=== PATIENT | male | born 1970 | race Caucasian/White ===

== ENCOUNTER 2023-09-23 08:26 | Emergency (ER) | payer BC, SELFPAY ==
[2023-09-23 08:29] VITALS: BP 168/96
[2023-09-23 09:11] VITALS: BMI 34.0
[2023-09-23 09:24] LABS: % Basophils 0.7 % (0-2); % Eosinophils 1.4 % (0-6); % Immature Granulocytes 0.4 % (0-0.5); % Lymphocytes 21.5 % (20.5-51.1); % Monocytes 8.8 % (1.7-9.3); % Neutrophils 67.2 % (42.2-75.2); Absolute Basophils 0.1 10^3/uL (0-0.2); Absolute Eosinophils 0.1 10^3/uL (0-0.7); Absolute Lymphocytes 1.8 10^3/uL (1.2-3.4); Absolute Monocytes 0.7 10^3/uL (0.1-0.6); Absolute Neutrophils 5.5 10^3/uL (1.4-6.5); Hematocrit 43.7 % (39.0-52.0); Hemoglobin 15.2 g/dL (13.0-18.0); Mean Corp Hgb Conc. 34.8 g/dL (33.0-37.0); Mean Corpuscular Hgb 30.7 pg (27.0-31.0); Mean Corpuscular Volume 88.3 fL (80.0-94.0); Mean Platelet Volume 10.1 fL (7.4-10.4); Nucleated Red Blood Cells % 0 % (-); Platelet Count 206 10^3/uL (130-400); Red Blood Cell Count 4.95 10^6/uL (4.70-6.10); Red Cell Dist. Width 12.5 % (11.5-14.5); White Blood Cell Count 8.1 10^3/uL (4.8-10.8)
[2023-09-23 09:39] LABS: ALT (SGPT) 30 U/L (0-50); AST (SGOT) 30 U/L (17-59); Albumin 4.4 g/dl (3.5-5.0); Alkaline Phosphatase 83 U/L (38-126); Blood Urea Nitrogen 18 mg/dl (9-20); Calcium 9.1 mg/dl (8.4-10.2); Carbon Dioxide 23 mmol/L (22-30); Chloride 107 mmol/L (98-107); Estimated Creatinine Clearance > 125 ml/min; Glucose 91 mg/dl (70-99); Lipase 62 U/L (23-300); Potassium 4.3 mmol/L (3.5-5.1); Sodium 137 mmol/L (135-145); Total Bilirubin 0.8 mg/dl (0.2-1.3); Total Protein 7.5 g/dl (6.3-8.2); eGFR > 60.00
--- NOTE | 2023-09-23 09:53 | ED.GENMED ---
History of Present Illness
General
Chief Complaint: Abdominal Symptoms
Source: patient, records and spouse
Exam Limitations: none
Time Seen by Provider: 09/23/23 08:54
Nursing documentation reviewed up to this point in time: agreed with
Travel History
Have you had any contact with someone who has COVID-19?: No
Do you have any symptoms of coronavirus? Fever > 100 degrees, chills, cough, shortness of breath, sore throat, loss of taste or smell, muscle aches, or headache?: No
History of Present Illness
History of Present Illness:
53-year-old male with a past medical history of hypertension, hyperlipidemia who presents to the emergency department for evaluation of hemoptysis. Patient reports that he has had multiple chronic health issues over the past few months and has been
back and forth between his primary doctor and multiple specialist. He says that he has been dealing with chronic congestion and headaches and has seen an ENT, neurologist and is in the midst of an outpatient workup for these things. His ENT thinks
he may have eustachian tube dysfunction patient has been taking Flonase nasal spray recently. He says that he has been dealing with chronic abdominal discomfort located in the right upper abdomen radiates towards the right flank. He says that he
has seen a GI doctor and recently had upper and lower endoscopy which were nondiagnostic. He is already status post both appendectomy and cholecystectomy. He does have a prior surgical history of gastric bypass as well. He presents to the
emergency today primarily to be evaluated for hemoptysis. He says that all of his other symptoms are chronic and unchanged but that this morning when he woke up he coughed up blood. He says that it was not vomit, was sputum mixed with bright red
blood. He denies any shortness of breath. He denies any recent fevers or chills. He has not had any recent nosebleeds. He is not on any blood thinners. Has not had any pain or swelling in his legs, no history of DVT/PE.
Past History
Past History
ED Past Medical History: HTN, Hypercholesterolemia and Other (Traumatic brain injury)
ED Past Surgical History: Appendectomy, Cholecystectomy and Orthopedic
Social History
Tobacco: Smoker
Alcohol: None
Drug: None
Personal:
Living: with family
Employment: Disabled
Family History
Family History: CAD
Review of Systems
Review of Systems
All Other Systems: ROS reviewed and negative except as documented in HPI and ROS
Constitutional: Denies fever or chills
EENT: Reports other (Chronic congestion); Denies sore throat
Respiratory: Reports cough and hemoptysis; Denies trouble breathing
Cardiac: Denies chest pain, diaphoresis or palpitations
ABD/GI: Reports abdominal pain (Chronic); Denies nausea or vomiting
: Denies flank pain
Musculoskeletal: Denies neck pain or back pain
Neurological: Reports headache (Chronic); Denies weakness or numbness
Phy Exam
Physical Exam
Physical Exam:
General: Awake, alert, oriented x3; no acute distress
Head: Normocephalic, atraumatic
Eyes: Conjunctiva normal, EOMI, sclera anicteric
Nose: No blood in nares
Throat: Airway intact, handling secretions, no tonsillar erythema or exudate, no bleeding into the posterior oropharynx
Neck: Trachea midline, supple without meningismus
Lungs: Clear to auscultation bilaterally, no wheezing, rales, rhonchi
Heart: Regular rate and rhythm, no murmurs, gallops, or rubs
Abd: Soft, non distended, nontender to deep palpation
Back: No CVA tenderness
Neuro: No gross deficits
Skin: no rash
Extremities: Warm well-perfused, no edema
Scores
Heart Failure Risk
Heart Failure Risk Score: Not Applicable
Heart Score for Chest Pain Patients
STEMI patient?: Not applicable
Withdrawal Assessment of Alcohol
Withdrawal Assessment Completed?: Not applicable
Course
Orders/Labs/Results
Orders:
Orders
09/23/23 09:13
Complete Blood Count/With Diff Urgent
Comprehensive Metabolic Panel Urgent
Lipase Urgent
09/23/23 09:53
CT Chest Pe Study Urgent
Comment:
Reason For Exam: hemoptysis, right flank pain
Abnormal Lab Results
09/23/23
09:13
Absolute Monos (auto) 0.7 H 10^3/uL
(0.1-0.6)
Creatinine 0.6 L mg/dL
(0.7-1.3)
09/23/23 09:13
09/23/23 09:13
Vital Signs
Initial and Last Documented VS:
Initial Vital Signs
Temp Pulse Resp BP
37.2 C 95 16 168/96
09/23/23 08:29 09/23/23 08:29 09/23/23 08:29 09/23/23 08:29
Last Documented Vital Signs
Temp Pulse Resp BP
37.2 C 95 16 168/96
09/23/23 08:29 09/23/23 08:29 09/23/23 08:29 09/23/23 08:29
MDM/Problems Addressed
Differential Diagnosis Includes:
PE, pneumonia, bronchitis, posterior epistaxis
MDM/Problems Addressed:
53-year-old male presents for evaluation of hemoptysis x 1 episode today. He has been dealing with multiple chronic issues and has seen multiple specialists for these�these issues are all stable and unchanged he says. Hypertensive but otherwise
normal vitals here. Physical exam as above. Plan to place an IV check labs including a CBC and a CMP. Will check CTA to rule out PE with his chronic right flank pain and now hemoptysis. Will monitor closely reassess after the above.
Labs reviewed: CBC and CMP unremarkable; CTA negative for PE does show mild bronchitis which could account for his hemoptysis. Will start on short burst of steroids. No clear indication for admission he has not had no recurrence of hemoptysis I
think he is stable for discharge to follow-up with his primary care physician and multiple specialists to continue outpatient workup of his chronic issues. Spoke about return precautions all questions answered.
Acute Exacerbation and/or Progression of Chronic Illness:
Acutely hypertensive
Acute Exacerbation and/or Progression of Chronic Illness: HTN
*Radiology
Radiology exam reviewed: radiology read reviewed
*Pulse Oximetry
Patient hypoxic: no
*Critical Care Note
Total Time (30-74mins, 75-104mins- exclusive of procedures): Not Applicable
Data Reviewed
Source: patient
ED Attending Note
-
Portions of this chart may have been created with voice recognition software.� Occasional wrong word or��sound alike� substitutions may have occurred due to the inherent limitations of voice recognition software.
Discharge Plan
Departure
Patient Disposition: Home (Routine Discharge)
Date of Disposition: 09/23/23
Time of Disposition: 11:34
Patient with high blood pressure during this ER visit?: Yes
Discharge Problem:
Bronchitis, Hemoptysis
Instructions: Acute Bronchitis, Adult (DC), Coughing up blood
Prescriptions:
New
prednisone 50 mg tablet
50 mg PO DAILY Qty: 5 0RF
No Action
omeprazole 20 MG capsule,delayed release(DR/EC)
20 mg PO BID
fexofenadine-pseudoephedrine [Pamela-D 24 Hour] 1 EACH tablet extended release 24 hr
1 ea PO HS
Referrals:
Nicolette Garza DO [Family Provider] - Follow up in 2-3 days
Activity Restrictions/Additional Instructions:
Thank you for visiting the Emergency Department at [facility].
1. Please schedule a follow up appointment as directed. Call first thing tomorrow morning to make an appointment.
2. If indicated, please take your medications as instructed and indicated on discharge paperwork.
3. If any of your symptoms do not improve, or persist, or become more severe within 6-12 hours, please return to the emergency department for further care.
4. Please return to the emergency department if you develop a headache, neck pain/stiffness, fever greater than 100.4F, chest pain, shortness of breath, persistent nausea, vomiting, slurred speech, difficulty walking, numbness/tingling, weakness,
signs of infection or any other symptoms that are worrisome to you.
Please call [phone] if you have any questions.
Interventions
Interventions:
*Risk Screen - Suicide Last Done: 09/23/23 09:11
*General Assessment Last Done: 09/23/23 09:11
*Neglect/Abuse Screening Last Done: 09/23/23 09:11
*ED COVID-19 Vaccine History Last Done: 09/23/23 08:29
KE-Kgumku-Hfrfidpmgv Assessment Last Done: 09/23/23 09:11
[2023-09-23] MEDS: DELTASONE 50 MG PO (11:55)
--- NOTE | 2023-09-23 12:31 | EDRN ---
12:04 pt discharged after he spoke > [address] Vizcarra regarding plan of care including follow up and lifestyle changes. CT report printout provided to pt.
== END 2023-09-23 12:04 | disposition home or self-care (01) ==
LOC: EMR 08:26
PROVIDERS: EMERGENCY PHYSICIAN Emergency Medicine; FAMILY PHYSICIAN Internal Medicine
DX: J40 Bronchitis, not specified as acute or chronic (principal); R04.2 Hemoptysis; I10 Essential (primary) hypertension; E78.00 Pure hypercholesterolemia, unspecified; F17.200 Nicotine dependence, unspecified, uncomplicated; Z82.49 Family history of ischemic heart disease and other diseases of the circulatory system; Z90.49 Acquired absence of other specified parts of digestive tract; Z98.84 Bariatric surgery status
CPT/HCPCS: 99284; 71275; 80053; 83690; 85025; Q9967

== ENCOUNTER 2023-12-19 10:20 | Emergency (ER) | payer BC, SELFPAY ==
[2023-12-19 10:26] VITALS: BP 165/87
[2023-12-19 11:31] VITALS: BMI 36.0
[2023-12-19 11:43] LABS: % Basophils 0.7 % (0-2); % Eosinophils 0.4 % (0-6); % Immature Granulocytes 0.3 % (0-0.5); % Lymphocytes 22.7 % (20.5-51.1); % Monocytes 8.3 % (1.7-9.3); % Neutrophils 67.6 % (42.2-75.2); Absolute Basophils 0.1 10^3/uL (0-0.2); Absolute Lymphocytes 1.7 10^3/uL (1.2-3.4); Absolute Monocytes 0.6 10^3/uL (0.1-0.6); Hemoglobin 15.3 g/dL (13.0-18.0); Mean Corp Hgb Conc. 33.3 g/dL (33.0-37.0); Mean Corpuscular Hgb 30.5 pg (27.0-31.0); Mean Corpuscular Volume 91.8 fL (80.0-94.0); Mean Platelet Volume 10.3 fL (7.4-10.4); Nucleated Red Blood Cells % 0 % (-); Platelet Count 239 10^3/uL (130-400); Red Blood Cell Count 5.01 10^6/uL (4.70-6.10); Red Cell Dist. Width 13.3 % (11.5-14.5); White Blood Cell Count 7.5 10^3/uL (4.8-10.8)
[2023-12-19 11:56] LABS: INR 1.07; PT 13.7 Sec (11.4-14.6)
[2023-12-19 11:57] LABS: APTT 27.9 Sec (23.4-35.0)
--- NOTE | 2023-12-19 12:36 | ED.GENMED ---
History of Present Illness
General
Chief Complaint: Abdominal Pain
Source: patient
Time Seen by Provider: 12/19/23 11:38
Travel History
Have you had any contact with someone who has COVID-19?: No
Do you have any symptoms of coronavirus? Fever > 100 degrees, chills, cough, shortness of breath, sore throat, loss of taste or smell, muscle aches, or headache?: No
History of Present Illness
History of Present Illness:
53-year-old male with past medical history of hypertension, hyperlipidemia, gastroparesis, fatty liver disease presenting to the emergency department for evaluation of persistent right upper quadrant symptoms, generalized pruritus, abdominal
rash/erythematous spots and today thought patient's eyes looked yellow prompting him to come to the ER for further evaluation. Patient follows at [facility] with GI and liver but states no etiology is found for his chronic right upper quadrant pain.
He notes multiple imaging studies including CT and ultrasound with only findings noted for fatty liver disease. Patient denies any fevers, vomiting, bowel changes or urinary symptoms. Overall no new symptoms today outside of patient stating
thought patient's eyes looked jaundiced
Past History
Past History
ED Past Medical History: HTN, Hypercholesterolemia and Other (Traumatic brain injury)
ED Past Surgical History: Appendectomy, Cholecystectomy and Orthopedic
Social History
Tobacco: Smoker
Alcohol: None
Drug: None
Personal:
Living: with family
Employment: Disabled
Family History
Family History: CAD
Review of Systems
Review of Systems
All Other Systems: ROS reviewed and negative except as documented in HPI and ROS
Phy Exam
Physical Exam
Physical Exam:
GENERAL: Alert , in no apparent distress
EYE: clear conjunctiva b/l, nonicteric sclera
HEAD: NCAT
ENT: mmm.
ABDOMEN: Soft, without focal tenderness, no r/g, no cvat, mccormack angiomas over the abdomen
NEUROLOGICAL: Alert and oriented
SKIN: Warm and dry, skin intact. No rash
MUSCULOSKELETAL: No edema, well perfused.
PSYCH: Normal and appropriate interaction.
Scores
Heart Failure Risk
Heart Failure Risk Score: Not Applicable
Heart Score for Chest Pain Patients
STEMI patient?: Not applicable
Withdrawal Assessment of Alcohol
Withdrawal Assessment Completed?: Not applicable
Course
Orders/Labs/Results
Orders:
Orders
12/19/23 11:34
Complete Blood Count/With Diff Urgent
12/19/23 11:35
PT/INR [Prothrombin Time] Urgent
PTT Urgent
12/19/23 12:05
Comprehensive Metabolic Panel Urgent
Lipase Urgent
12/19/23 12:06
Iohexol [Omnipaque] 50 ml .ROUTE .STK-MED ONE
Abnormal Lab Results
12/19/23
12:05
Creatinine 0.6 L mg/dL
(0.7-1.3)
12/19/23 11:34
12/19/23 12:05
Vital Signs
Initial and Last Documented VS:
Initial Vital Signs
Temp Pulse Resp BP Pulse Ox
98.7 F 85 22 165/87 98
12/19/23 10:26 12/19/23 10:26 12/19/23 10:26 12/19/23 10:26 12/19/23 10:26
Last Documented Vital Signs
Temp Pulse Resp BP Pulse Ox
98.7 F 77 20 130/81 99
12/19/23 10:26 12/19/23 13:00 12/19/23 13:00 12/19/23 13:00 12/19/23 13:00
MDM/Problems Addressed
Differential Diagnosis Includes:
Acute on chronic fatty liver disease, hyperbilirubinemia, no concern for a allergic reaction
MDM/Problems Addressed:
53-year-old male presenting to the emergency department for evaluation of acute on GI symptoms, generalized pruritus and reportedly today thought patient looked jaundiced. At this time patient is hemodynamically stable and in no acute
distress. Overall I am not as suspicious for an acute jaundice however given patient's history will obtain labs. He has had multiple imaging done in the past and is status postcholecystectomy. Will avoid imaging at this time but will add if labs
seem to be out of patient normal range.
Chronic conditions affecting care: Previous abdomnial surgery
*Pulse Oximetry
Patient hypoxic: no
*Critical Care Note
Total Time (30-74mins, 75-104mins- exclusive of procedures): Not Applicable
Data Reviewed
Review of Other/Old Records Reveals: Labs, Records and Radiology Studies
Patient Management
Escalation/DeEscalation of care consider admission/obs:
Labs unremarkable. Patient stable for discharge home and continued outpatient management
ED Attending Note
-
Portions of this chart may have been created with voice recognition software.� Occasional wrong word or��sound alike� substitutions may have occurred due to the inherent limitations of voice recognition software.
Discharge Plan
Departure
Patient Disposition: Home (Routine Discharge)
Date of Disposition: 12/19/23
Time of Disposition: 13:03
Patient with high blood pressure during this ER visit?: Yes
Discharge Problem:
Generalized pruritus
Instructions: Itchy skin
Prescriptions:
No Action
omeprazole 20 MG capsule,delayed release(DR/EC)
20 mg PO BID
fexofenadine-pseudoephedrine [Pamela-D 24 Hour] 1 EACH tablet extended release 24 hr
1 ea PO HS
losartan 50 mg Tablet
50 mg PO DAILY
famotidine 10 mg Tablet
10 mg PO HS
montelukast 10 mg Tablet
10 mg PO DAILY
Referrals:
PRIVATE,PHYSICIAN [Family Provider] -
Interventions
Interventions:
*Risk Screen - Suicide Last Done: 12/19/23 11:31
*General Assessment Last Done: 12/19/23 11:31
*Neglect/Abuse Screening Last Done: 12/19/23 11:31
ED- Fall Risk Assessment Last Done: 12/19/23 11:31
*ED COVID-19 Vaccine History Last Done: 12/19/23 10:29
*Nursing Disposition Last Done: 12/19/23 13:11
TI-Dgpuhl-Hxtnhyvtzx Assessment Last Done: 12/19/23 11:31
Discharge Date and Time
Discharge Date/Time: 12/19/23 13:12
Print Language: FRISIAN
[2023-12-19 12:59] LABS: ALT (SGPT) 35 U/L (0-50); AST (SGOT) 33 U/L (17-59); Albumin 4.7 g/dl (3.5-5.0); Alkaline Phosphatase 98 U/L (38-126); Blood Urea Nitrogen 15 mg/dl (9-20); Calcium 9.9 mg/dl (8.4-10.2); Carbon Dioxide 26 mmol/L (22-30); Chloride 106 mmol/L (98-107); Estimated Creatinine Clearance > 125 ml/min; Glucose 98 mg/dl (70-99); Lipase 48 U/L (23-300); Potassium 3.8 mmol/L (3.5-5.1); Sodium 141 mmol/L (135-145); Total Bilirubin 0.8 mg/dl (0.2-1.3); Total Protein 7.6 g/dl (6.3-8.2); eGFR > 60.00
[2023-12-19 13:00] VITALS: BP 130/81
== END 2023-12-19 13:12 | disposition home or self-care (01) ==
LOC: EMR 10:20
PROVIDERS: EMERGENCY PHYSICIAN Emergency Medicine
DX: L29.9 Pruritus, unspecified (principal); I10 Essential (primary) hypertension; E78.00 Pure hypercholesterolemia, unspecified; K31.84 Gastroparesis; K76.0 Fatty (change of) liver, not elsewhere classified; F17.200 Nicotine dependence, unspecified, uncomplicated; Z82.49 Family history of ischemic heart disease and other diseases of the circulatory system; Z90.49 Acquired absence of other specified parts of digestive tract
CPT/HCPCS: 99283; 80053; 83690; 85025; 85610; 85730

== ENCOUNTER 2024-08-21 12:40 | Emergency (ER) | payer BC, SELFPAY ==
[2024-08-21 12:40] VITALS: BMI 26.5
[2024-08-21 12:45] VITALS: BP 162/91
[2024-08-21 13:09] LABS: % Basophils 0.8 % (0-2); % Immature Granulocytes 0.3 % (0-0.5); % Lymphocytes 29.1 % (20.5-51.1); % Monocytes 9.8 % (1.7-9.3); Absolute Basophils 0.1 10^3/uL (0-0.2); Absolute Eosinophils 0.2 10^3/uL (0-0.7); Absolute Lymphocytes 1.9 10^3/uL (1.2-3.4); Absolute Monocytes 0.6 10^3/uL (0.1-0.6); Absolute Neutrophils 3.7 10^3/uL (1.4-6.5); Hematocrit 41.3 % (39.0-52.0); Hemoglobin 13.6 g/dL (13.0-18.0); Mean Corp Hgb Conc. 32.9 g/dL (33.0-37.0); Mean Corpuscular Hgb 30.2 pg (27.0-31.0); Mean Corpuscular Volume 91.6 fL (80.0-94.0); Mean Platelet Volume 10.2 fL (7.4-10.4); Nucleated Red Blood Cells % 0 % (-); Platelet Count 272 10^3/uL (130-400); Red Blood Cell Count 4.51 10^6/uL (4.70-6.10); Red Cell Dist. Width 13.5 % (11.5-14.5); White Blood Cell Count 6.4 10^3/uL (4.8-10.8)
[2024-08-21 13:22] LABS: ALT (SGPT) 19 U/L (0-50); AST (SGOT) 27 U/L (17-59); Albumin 4.2 g/dl (3.5-5.0); Alkaline Phosphatase 78 U/L (38-126); Blood Urea Nitrogen 14 mg/dl (9-20); Calcium 8.9 mg/dl (8.4-10.2); Carbon Dioxide 27 mmol/L (22-30); Glucose 94 mg/dl (70-99); Potassium 4.4 mmol/L (3.5-5.1); Sodium 140 mmol/L (135-145); Total Bilirubin 0.5 mg/dl (0.2-1.3); Total Protein 6.7 g/dl (6.3-8.2); eGFR > 60.00
[2024-08-21 13:30] LABS: Chloride 106 mmol/L (98-107)
[2024-08-21 13:33] LABS: Troponin I < 0.012 ng/ml
[2024-08-21 14:11] VITALS: BP 146/66
[2024-08-21 15:00] VITALS: BP 117/75
[2024-08-21] MEDS: TORADOL 30 MG IV (15:29)
--- NOTE | 2024-08-21 15:46 | ED.GENMED ---
History of Present Illness
<Mert Robertson, DO - Last Filed: 08/21/24 15:56>
General
Chief Complaint: Breathing Problem
Source: patient and records
Exam Limitations: none
Time Seen by Provider: 08/21/24 14:39
Nursing documentation reviewed up to this point in time: agreed with
History of Present Illness
History of Present Illness:
54-year-old male presents with multiple complaints few weeks of viral syndrome, treated with course of steroids course of antibiotics, had some fevers, symptoms improved a few days ago, now he says he has a headache, shortness of breath, pain in his
upper abdomen to the right side of his chest, nausea at times when he eats but not always, states this is different than his reflux, does have a family history of CAD had some testing done at an outside hospital he tells me he had an elevated
calcium score followed up with a cardiac catheterization did not have any stents placed this was at [facility] through the [facility] system apparently, he states this occurred within the past year or so
Past History
<Mert Robertson, DO - Last Filed: 08/21/24 15:56>
Past History
ED Past Medical History: HTN, Hypercholesterolemia and Other (Traumatic brain injury)
ED Past Surgical History: Appendectomy, Cholecystectomy and Orthopedic
Social History
Tobacco: Smoker
Alcohol: None
Drug: None
Personal:
Living: with family
Employment: Disabled
Family History
Family History: CAD
Review of Systems
<Mert Robertson, DO - Last Filed: 08/21/24 15:56>
Review of Systems
All Other Systems: Not applicable
Constitutional: Reports fatigue; Denies fever
EENT: Reports no symptoms
Respiratory: Reports trouble breathing
Cardiac: Reports chest pain
ABD/GI: Reports abdominal pain; Denies nausea
: Reports no symptoms
Musculoskeletal: Reports no symptoms
Neurological: Reports headache
Endocrine: Reports no symptoms
Hematologic/Lymphatic: Reports no symptoms
Phy Exam
<Jenny Nj PA-C - Last Filed: 08/22/24 00:52>
General Physical Exam
General Presentation: no apparent distress
Scores
<Jenny Nj PA-C - Last Filed: 08/22/24 00:52>
Heart Failure Risk
Heart Failure Risk Score: Not Applicable
Course
<Mert Robertson DO - Last Filed: 08/21/24 15:56>
Orders/Labs/Results
Orders:
Orders
08/21/24 12:42
ECG [Electrocardiogram (*1)] Urgent
Reason for Study: Chest Pain
08/21/24 12:43
EKG- Treatment ONCE
08/21/24 12:57
Complete Blood Count/With Diff Urgent
Comprehensive Metabolic Panel Urgent
Troponin I Urgent
08/21/24 15:19
CT Head W/o Iv Contrast Urgent
Comment:
Reason For Exam: HEADACHE
Ketorolac [Toradol] 30 mg IV NOW STA
08/21/24 15:20
CT Chest PE Study Urgent
Comment:
Reason For Exam: CP SOB
08/21/24 17:59
0.9% Sodium Chloride 1000 ml [Nss] 1,000 ml IV BOLUS
Acetaminophen [Tylenol] 650 mg PO NOW STA
Abnormal Lab Results
08/21/24
12:57
RBC 4.51 L 10^6/uL
(4.70-6.10)
MCHC 32.9 L g/dL
(33.0-37.0)
Monocytes % 9.8 H %
(1.7-9.3)
08/21/24 12:57
08/21/24 12:57
Vital Signs
Initial and Last Documented VS:
Initial Vital Signs
Temp Pulse Resp BP Pulse Ox
98.6 F 84 16 162/91 97
08/21/24 12:45 08/21/24 12:45 08/21/24 12:45 08/21/24 12:45 08/21/24 12:45
Last Documented Vital Signs
Temp Pulse Resp BP Pulse Ox
98.5 F 71 16 131/88 96
08/21/24 20:04 08/21/24 20:04 08/21/24 20:04 08/21/24 20:04 08/21/24 20:04
<Jenny Nj PA-C - Last Filed: 08/22/24 00:52>
Orders/Labs/Results
Orders:
Orders
08/21/24 12:42
ECG [Electrocardiogram (*1)] Urgent
Reason for Study: Chest Pain
08/21/24 12:43
EKG- Treatment ONCE
08/21/24 12:57
Complete Blood Count/With Diff Urgent
Comprehensive Metabolic Panel Urgent
Troponin I Urgent
08/21/24 15:19
CT Head W/o Iv Contrast Urgent
Comment:
Reason For Exam: HEADACHE
Ketorolac [Toradol] 30 mg IV NOW STA
08/21/24 15:20
CT Chest PE Study Urgent
Comment:
Reason For Exam: CP SOB
08/21/24 17:59
0.9% Sodium Chloride 1000 ml [Nss] 1,000 ml IV BOLUS
Acetaminophen [Tylenol] 650 mg PO NOW STA
Abnormal Lab Results
08/21/24
12:57
RBC 4.51 L 10^6/uL
(4.70-6.10)
MCHC 32.9 L g/dL
(33.0-37.0)
Monocytes % 9.8 H %
(1.7-9.3)
08/21/24 12:57
08/21/24 12:57
Vital Signs
Initial and Last Documented VS:
Initial Vital Signs
Temp Pulse Resp BP Pulse Ox
98.6 F 84 16 162/91 97
08/21/24 12:45 08/21/24 12:45 08/21/24 12:45 08/21/24 12:45 08/21/24 12:45
Last Documented Vital Signs
Temp Pulse Resp BP Pulse Ox
98.5 F 71 16 131/88 96
08/21/24 20:04 08/21/24 20:04 08/21/24 20:04 08/21/24 20:04 08/21/24 20:04
<Mert Robertson, DO - Last Filed: 08/21/24 15:56>
MDM/Problems Addressed
Differential Diagnosis Includes:
Dehydration deconditioning ACS PE pancreatitis pneumonia subarachnoid hemorrhage brain tumor
MDM/Problems Addressed:
Headache chest pain shortness of breath
Chronic conditions affecting care:
Traumatic brain injury anxiety
Chronic conditions affecting care: Neurological disorder and Psychiatric illness
Acute Exacerbation and/or Progression of Chronic Illness: Neurological disorder and Psychiatric illness
<Mert Robertson, DO - Last Filed: 08/21/24 15:56>
*Radiology
Radiology exam reviewed: radiology read reviewed
*Pulse Oximetry
Patient hypoxic: no
*EKG
Interpreted by ED Provider?: Yes
Interpretation: normal
Comparison EKG: no comparison EKG present
Heart Rate: 78
Rate: normal
Rhythm: sinus
Ischemia: no ischemia
*Slot Host Interpretation
Rate: normal
Interpretation: normal
Heart Rate: 78
Rhythm: sinus
*Critical Care Note
Total Time (30-74mins, 75-104mins- exclusive of procedures): Not Applicable
Data Reviewed
Source: patient
<Mert Robertson DO - Last Filed: 08/21/24 15:56>
Update Note
Update Note:
Update patient with multiple complaints, PDMP noted last filled some benzodiazepines over a month ago, normal EKG undetectable troponin will check CT head CT chest if negative discharged to follow-up with his PCP
<Jenny Nj PA-C - Last Filed: 08/22/24 00:52>
Update Note
Update Note:
Received patient in signout�update 7:30 PM: Patient given Tylenol, IV fluids for headache. CT head/CTA chest reports reviewed. CT head without acute abnormalities. CTA chest report noted and discussed at length with patient. Did advise
cardiology follow-up given atherosclerotic plaques noted in coronary arteries. Patient has albuterol inhaler at home which she will continue as needed for shortness of breath given possible bronchitis. Otherwise�patient remained stable, in no
apparent distress. He will follow closely with primary care outpatient. Did provide information for cardiology follow-up, as well. Patient stable for discharge
ED Attending Note
<Mert Robertson DO - Last Filed: 08/21/24 15:56>
-
Portions of this chart may have been created with voice recognition software.� Occasional wrong word or��sound alike� substitutions may have occurred due to the inherent limitations of voice recognition software.
Discharge Plan
Departure
Patient Disposition: Home (Routine Discharge)
Date of Disposition: 08/21/24
Time of Disposition: 16:25
Patient with high blood pressure during this ER visit?: No
Condition: Good
Discharge Problem:
Chest pain, Headache
Instructions: CT scan, Chest pain in adults - ED discharge instructions, Headache in adults - ED discharge instructions, Chest Pain NON-[facility] [employer] Follow Up
Prescriptions:
New
ondansetron 4 mg tablet,disintegrating
4 mg PO Q8H 1 Days Qty: 3 0RF
No Action
omeprazole 20 MG capsule,delayed release(DR/EC)
20 mg PO BID
fexofenadine-pseudoephedrine [Pamela-D 24 Hour] 1 EACH tablet extended release 24 hr
1 ea PO HS
losartan 50 mg Tablet
50 mg PO DAILY
famotidine 10 mg Tablet
10 mg PO HS
montelukast 10 mg Tablet
10 mg PO DAILY
Referrals:
John Erazo MD [Active] - Next open appointment
Activity Restrictions/Additional Instructions:
As discussed that there was some plaque seen in your coronary arteries today on your CAT scan. You should ensure that you follow-up with a student affairs vice president to have this evaluated.
Interventions
Interventions:
*Risk Screen - Suicide Last Done: 08/21/24 12:45
*General Assessment Last Done: 08/21/24 20:12
*Neglect/Abuse Screening Last Done: 08/21/24 12:45
ED- Fall Risk Assessment Last Done: 08/21/24 15:39
*ED COVID-19 Vaccine History Last Done: 08/21/24 20:12
*Nursing Disposition Last Done: 08/21/24 20:12
ED- Cardiac Assessment Last Done: 08/21/24 15:39
ED- Pulmonary Assessment Last Done: 08/21/24 15:39
Discharge Date and Time
Discharge Date/Time: 08/21/24 20:14
Print Language: [place]
[2024-08-21 17:22] VITALS: BP 104/55
[2024-08-21 18:00] VITALS: BP 111/86
[2024-08-21] MEDS: NSS 1000 IV (18:06)
[2024-08-21] MEDS: TYLENOL 650 MG PO (18:06)
[2024-08-21 20:04] VITALS: BP 131/88
== END 2024-08-21 20:14 | disposition home or self-care (01) ==
LOC: EMR 12:40
PROVIDERS: Emergency Medicine; EMERGENCY PHYSICIAN Emergency Medicine
DX: R07.89 Other chest pain (principal); R51.9 Headache, unspecified; E78.00 Pure hypercholesterolemia, unspecified; I10 Essential (primary) hypertension; Z87.820 Personal history of traumatic brain injury; Z90.49 Acquired absence of other specified parts of digestive tract; F17.200 Nicotine dependence, unspecified, uncomplicated; Z82.49 Family history of ischemic heart disease and other diseases of the circulatory system
CPT/HCPCS: 96374; 96361; 99284; 70450; 71275; 80053; 84484; 85025; 93005; Q9967

== ENCOUNTER 2024-09-16 12:44 | Emergency (ER) | payer BC, SELFPAY ==
[2024-09-16 12:47] VITALS: BP 136/96
[2024-09-16 13:36] LABS: ALT (SGPT) 30 U/L (0-50); AST (SGOT) 33 U/L (17-59); Alkaline Phosphatase 106 U/L (38-126); Blood Urea Nitrogen 9 mg/dl (9-20); Calcium 9.5 mg/dl (8.4-10.2); Carbon Dioxide 22 mmol/L (22-30); Chloride 105 mmol/L (98-107); Glucose 110 mg/dl (70-99); Potassium 4.2 mmol/L (3.5-5.1); Sodium 139 mmol/L (135-145); Total Protein 7.6 g/dl (6.3-8.2); eGFR > 60.00
[2024-09-16 13:37] LABS: % Basophils 0.8 % (0-2); % Eosinophils 2.4 % (0-6); % Immature Granulocytes 0.1 % (0-0.5); % Lymphocytes 23.7 % (20.5-51.1); % Monocytes 7.3 % (1.7-9.3); % Neutrophils 65.7 % (42.2-75.2); Absolute Basophils 0.1 10^3/uL (0-0.2); Absolute Eosinophils 0.2 10^3/uL (0-0.7); Absolute Lymphocytes 1.7 10^3/uL (1.2-3.4); Absolute Monocytes 0.5 10^3/uL (0.1-0.6); Absolute Neutrophils 4.7 10^3/uL (1.4-6.5); Hematocrit 44.9 % (39.0-52.0); Mean Corp Hgb Conc. 33.4 g/dL (33.0-37.0); Mean Corpuscular Hgb 29.9 pg (27.0-31.0); Mean Corpuscular Volume 89.6 fL (80.0-94.0); Mean Platelet Volume 10.8 fL (7.4-10.4); Nucleated Red Blood Cells % 0 % (-); Platelet Count 219 10^3/uL (130-400); Red Blood Cell Count 5.01 10^6/uL (4.70-6.10); Red Cell Dist. Width 13.7 % (11.5-14.5); White Blood Cell Count 7.2 10^3/uL (4.8-10.8)
[2024-09-16 13:54] LABS: Lipase 66 U/L (23-300)
--- NOTE | 2024-09-16 15:27 | ED.GENMED ---
History of Present Illness
<Mike Gonzales DO - Last Filed: 09/16/24 17:13>
General
Chief Complaint: Abdominal Pain
Time Seen by Provider: 09/16/24 15:03
<Jenny Nj PA-C - Last Filed: 09/17/24 20:02>
General
Source: patient
Exam Limitations: none
Nursing documentation reviewed up to this point in time: agreed with
History of Present Illness
History of Present Illness:
Patient is a 54-year-old male with history hypertension, hyperlipidemia, sleeve gastrectomy in 2019 presented to the emergency department with abdominal pain. Patient states that for the past 6 days he has had a bloating sensation/upper abdominal
pain. It has been mildly constant at rest although significantly worse with any food or liquid. Patient states pain in epigastric/right upper quadrant radiating around to right flank and up into his right neck. Patient states it feels like he has
something stuck in his right neck and is having mild difficulty swallowing. Patient is felt nauseous but denies any vomiting. No dysuria or changes in bowel habits. No shortness of breath. No exertional chest pain. No known fevers
Patient has been unable to tolerate much food/liquid since pain started.
He did try to double his Protonix without much in his symptoms.
Patient had a sleeve gastrectomy in 2019. He also has a history of appendectomy and cholecystectomy.
Past History
<Jenny Nj PA-C - Last Filed: 09/17/24 20:02>
Past History
ED Past Medical History: HTN, Hypercholesterolemia and Other (Traumatic brain injury)
ED Past Surgical History: Appendectomy, Cholecystectomy and Orthopedic
Social History
Tobacco: Smoker
Alcohol: None
Drug: None
Personal:
Living: with family
Employment: Disabled
Family History
Family History: CAD
Review of Systems
<Jenny Nj PA-C - Last Filed: 09/17/24 20:02>
Review of Systems
Allergies reviewed?: Yes
All Other Systems: ROS reviewed and negative except as documented in HPI and ROS
Phy Exam
<Jenny Nj PA-C - Last Filed: 09/17/24 20:02>
Physical Exam
Physical Exam:
Vitals: Hypertensive, otherwise stable vital signs. Afebrile
General: Patient is mildly uncomfortable due to pain
Skin: Warm and dry, no rashes or lesions
Head: Normocephalic, atraumatic
Eyes: Sclera nonicteric. EOMs intact. No nystagmus.
Throat: Uvula midline. No visualized of foreign body. Protecting airway
Neck: No notable erythema or edema of neck. Normal ROM, no cervical spine tenderness, no meningismus.
Cardiac: Regular rate and rhythm, no murmurs.
Pulm: Normal respiratory effort, no wheezes, rales, rhonchi heard on exam.
Abdomen: Mildly distended. Abdomen soft with mild tenderness in epigastric region/RUQ. No rebound tenderness or guarding
Extremities: No evidence of cyanosis or edema
Neuro: AAOx3. Grossly intact.
Psychiatric: Normal affect.
Course
<Mike Gonzales DO - Last Filed: 09/16/24 17:13>
Orders/Labs/Results
Orders:
Orders
09/16/24 12:53
Electrocardiogram (*1) Urgent
Reason for Study: Chest Pain
EKG- Treatment ONCE
09/16/24 13:01
Complete Blood Count/With Diff Urgent
Comprehensive Metabolic Panel Urgent
Lipase Urgent
09/16/24 15:21
0.9% Sodium Chloride 1000 ml [Nss] 1,000 ml IV BOLUS
Famotidine [Pepcid] 20 mg IV NOW STA
Ondansetron Injectable [Zofran] 4 mg IV NOW STA
Soft Tissue, Neck [CR Soft Tissue Neck ] Urgent
Comment:
Reason For Exam: foreign body sensation right neck
09/16/24 15:23
CT Abd/pel W Iv And Oral Contr Urgent
Comment: hx gastric sleeve, elina
Reason For Exam: RUQ pain, nausea
Iohexol [Omnipaque] See Protocol PO NOW STA
09/16/24 15:40
COVID-19 Antigen Urgent
Source: Nasal Swab
Urinalysis Reflex To Culture Urgent
Date Specimen was Collected: 09/16/24
Time Specimen was Collected: 15:39
Influenza A+B Rapid Molecular Urgent
TREMAINE Source: Nasal Swab
Specimen Description:
09/16/24 16:02
Troponin I Urgent
09/16/24 17:04
Morphine Sulfate 4 mg IV NOW STA
09/16/24 18:09
CR Chest - 2 Views Urgent
Comment:
Reason For Exam: chest pain
Abnormal Lab Results
09/16/24
13:01
MPV 10.8 H fL
(7.4-10.4)
Glucose 110 H mg/dl
(70-99)
09/16/24 13:01
09/16/24 13:01
Vital Signs
Initial and Last Documented VS:
Initial Vital Signs
Temp Pulse Resp BP Pulse Ox
99.6 F 98 18 136/96 98
09/16/24 12:47 09/16/24 12:47 09/16/24 12:47 09/16/24 12:47 09/16/24 12:47
Last Documented Vital Signs
Temp Pulse Resp BP Pulse Ox
99.6 F 70 18 136/80 99
09/16/24 12:47 09/16/24 20:12 09/16/24 20:12 09/16/24 20:12 09/16/24 20:12
<Jenny Nj PA-C - Last Filed: 09/17/24 20:02>
Orders/Labs/Results
Orders:
Orders
09/16/24 12:53
Electrocardiogram (*1) Urgent
Reason for Study: Chest Pain
EKG- Treatment ONCE
09/16/24 13:01
Complete Blood Count/With Diff Urgent
Comprehensive Metabolic Panel Urgent
Lipase Urgent
09/16/24 15:21
0.9% Sodium Chloride 1000 ml [Nss] 1,000 ml IV BOLUS
Famotidine [Pepcid] 20 mg IV NOW STA
Ondansetron Injectable [Zofran] 4 mg IV NOW STA
Soft Tissue, Neck [CR Soft Tissue Neck ] Urgent
Comment:
Reason For Exam: foreign body sensation right neck
09/16/24 15:23
CT Abd/pel W Iv And Oral Contr Urgent
Comment: hx gastric sleeve, elina
Reason For Exam: RUQ pain, nausea
Iohexol [Omnipaque] See Protocol PO NOW STA
09/16/24 15:40
COVID-19 Antigen Urgent
Source: Nasal Swab
Urinalysis Reflex To Culture Urgent
Date Specimen was Collected: 09/16/24
Time Specimen was Collected: 15:39
Influenza A+B Rapid Molecular Urgent
TREMAINE Source: Nasal Swab
Specimen Description:
09/16/24 16:02
Troponin I Urgent
09/16/24 17:04
Morphine Sulfate 4 mg IV NOW STA
09/16/24 18:09
CR Chest - 2 Views Urgent
Comment:
Reason For Exam: chest pain
Abnormal Lab Results
09/16/24
13:01
MPV 10.8 H fL
(7.4-10.4)
Glucose 110 H mg/dl
(70-99)
09/16/24 13:01
09/16/24 13:01
Vital Signs
Initial and Last Documented VS:
Initial Vital Signs
Temp Pulse Resp BP Pulse Ox
99.6 F 98 18 136/96 98
09/16/24 12:47 09/16/24 12:47 09/16/24 12:47 09/16/24 12:47 09/16/24 12:47
Last Documented Vital Signs
Temp Pulse Resp BP Pulse Ox
99.6 F 70 18 136/80 99
09/16/24 12:47 09/16/24 20:12 09/16/24 20:12 09/16/24 20:12 09/16/24 20:12
<Jenny Nj PA-C - Last Filed: 09/17/24 20:02>
MDM/Problems Addressed
Differential Diagnosis Includes:
Not limited to: GERD, peptic ulcer, hiatal hernia, pancreatitis, bowel obstruction, etc
MDM/Problems Addressed:
54 year old male w/ hx sleeve gastrectomy and CCY presenting with 1 week of upper abdominal discomfort discomfort radiating in to neck, worse after eating. No vomiting or fevers. No shortness of breath or back pain. Patient hypertensive otherwise
has stable vital signs. Physical exam as above. Differential broad. Screening labs obtained in triage without abnormalities. EKG NSR without signs of ischemia. Low suspicion for cardiac process although will check troponin. Concern for complication
of sleeve gastrectomy - will obtain CT abdomen/pelvis. IV zofran and pain control.
Update: Troponin undetectable. CT without any acute abnormalities. A chest xray and neck xray were also obtained given foreign body sensation/neck discomfort without abnormalities. Patient hemodynamically stable. Labs without evidence of significant
dehydration. While no indication for admission today - patient will need urgent GI f/u for likely endoscopy for further workup. Offered GI although pt already follows with GI at [facility]. He will contact them tomorrow for appt and to move up
endoscopy date (which is currently scheduled for september). Will increase PPI and send carafate. Discussed importance of staying well hydrated and return precautions. Patient seen with attending physician.
Chronic conditions affecting care:
HTN, Hx gastric sleeve, hiatal hernia
Acute Exacerbation and/or Progression of Chronic Illness:
N/A
<Jenny Nj PA-C - Last Filed: 09/17/24 20:02>
*Radiology
Radiology exam reviewed: preliminary read by ED provider (Chest / neck xray reviewed by me - no acute abnormalities) and radiology read reviewed
*Pulse Oximetry
Patient hypoxic: no
*EKG
Interpreted by ED Provider?: Yes
EKG Intrepretation Date: 09/16/24
Interpretation: normal
Heart Rate: 82
Rate: normal
Rhythm: sinus
[place]: normal axis
Interval: normal interval
QRS Pattern: normal QRS
Ischemia: no ischemia
*Data Integration Developer Interpretation
Rate: Data Integration Developer- N/A
*Critical Care Note
Total Time (30-74mins, 75-104mins- exclusive of procedures): Not Applicable
ED Attending Note
<Mike Gonzales DO - Last Filed: 09/16/24 17:13>
ED Attending Note
Patient seen and examined by attending physician: Yes
I performed the substantive portion of visit, reviewed & personally made and approve the management plan that is documented in note by myself or JACK.: Yes
<Jenny Nj PA-C - Last Filed: 09/17/24 20:02>
-
Portions of this chart may have been created with voice recognition software.� Occasional wrong word or��sound alike� substitutions may have occurred due to the inherent limitations of voice recognition software.
Discharge Plan
Departure
Patient Disposition: Home (Routine Discharge)
Date of Disposition: 09/16/24
Time of Disposition: 19:31
Patient with high blood pressure during this ER visit?: Yes
Condition: Good
Covid-19: Negative COVID-19
Discharge Problem:
Abdominal pain
Instructions: Abdominal Pain, BLOOD PRESSURE
Prescriptions:
New
sucralfate [Carafate] 1 gram tablet
1 g PO QID Qty: 60 0RF
No Action
omeprazole 20 MG capsule,delayed release(DR/EC)
20 mg PO BID
fexofenadine-pseudoephedrine [Pamela-D 24 Hour] 1 EACH tablet extended release 24 hr
1 ea PO HS
losartan 50 mg Tablet
50 mg PO DAILY
famotidine 10 mg Tablet
10 mg PO HS
montelukast 10 mg Tablet
10 mg PO DAILY
ondansetron 4 mg tablet,disintegrating
4 mg PO Q8H 1 Days Qty: 3 0RF
Referrals:
UNKNOWN - PT DOES,NOT KNOW [Family Provider] -
Activity Restrictions/Additional Instructions:
Return to the emergency department any high fevers, intractable nausea/vomiting, signs of severe dehydration, worsening/intractable abdominal pain, chest pain/shortness of breath, or any other concerns
-As discussed�your lab work, urinalysis, x-rays, and CT scan showed no acute abnormalities
-You should contact your GI doctor tomorrow morning for an urgent endoscopy. Please let them know that we believe that you should be seen this week.
-You should continue to take your pantoprazole twice a day for the next few weeks. A prescription for Carafate has been to your pharmacy. You should take this 4 times a day. Take 30 minutes prior to breakfast and 30 minutes prior to dinner.
-Stable hydrated. I recommend a bland diet and avoid any spicy or acidic foods
Monitor your symptoms closely and return to the emergency department with any acute worsening/new symptoms or any other concerns
Interventions
Interventions:
*Risk Screen - Suicide Last Done: 09/16/24 12:47
*General Assessment Last Done: 09/16/24 12:47
*Neglect/Abuse Screening Last Done: 09/16/24 12:47
*ED COVID-19 Vaccine History Last Done: 09/16/24 14:25
*Nursing Disposition Last Done: 09/16/24 20:12
JG-[id number]-[id number] Assessment Last Done: 09/16/24 14:25
Discharge Date and Time
Discharge Date/Time: 09/16/24 20:13
Print Language: POLISH
[2024-09-16 15:42] VITALS: BP 145/93
[2024-09-16 15:43] VITALS: BMI 36.5
[2024-09-16 15:51] LABS: Urine Albumin Negative (Neg - Trace); Urine Bilirubin Negative (Negative); Urine Character Clear (Clear); Urine Color Yellow; Urine Glucose Negative (Negative); Urine Ketone Negative (Negative); Urine Leukocyte Negative (Negative); Urine Nitrite Negative (Negative); Urine Occult Blood Negative (Negative); Urine Urobilinogen Negative (Neg - 1+)
[2024-09-16 16:07] LABS: COVID-19 Antigen Negative (Negative)
[2024-09-16] MEDS: OMNIPAQUE 50 ML PO (16:15)
[2024-09-16] MEDS: NSS 1000 IV (16:15)
[2024-09-16] MEDS: ZOFRAN 4 MG IV (16:15)
[2024-09-16] MEDS: PEPCID 20 MG IV (16:15)
[2024-09-16 16:39] LABS: Troponin I < 0.012 ng/ml
[2024-09-16] MEDS: MORPHINE SULFATE 4 MG IV (17:09)
[2024-09-16 18:15] VITALS: BP 137/78
[2024-09-16 20:12] VITALS: BP 136/80
== END 2024-09-16 20:13 | disposition home or self-care (01) ==
LOC: EMR 12:44
PROVIDERS: Emergency Medicine; Physician Assistant; EMERGENCY PHYSICIAN Emergency Medicine
DX: R10.13 Epigastric pain (principal); R10.11 Right upper quadrant pain; M54.2 Cervicalgia; Z11.52 Encounter for screening for COVID-19; E78.00 Pure hypercholesterolemia, unspecified; I10 Essential (primary) hypertension; F17.200 Nicotine dependence, unspecified, uncomplicated; Z90.49 Acquired absence of other specified parts of digestive tract; Z98.84 Bariatric surgery status
CPT/HCPCS: 99285; 96374; 96375; 96361; 70360; 71046; 74177; 80053; 81003; 83690; 84484; 85025; 87502; 87811; 93005; Q9967

== ENCOUNTER 2024-11-01 11:38 | Emergency (ER) | payer BC, SELFPAY ==
[2024-11-01 11:42] VITALS: BP 176/102
[2024-11-01 12:16] LABS: % Basophils 0.6 % (0-2); % Eosinophils 1.4 % (0-6); % Immature Granulocytes 0.5 % (0-0.5); % Lymphocytes 17.4 % (20.5-51.1); % Monocytes 6.3 % (1.7-9.3); % Neutrophils 73.8 % (42.2-75.2); Absolute Basophils 0.1 10^3/uL (0-0.2); Absolute Eosinophils 0.1 10^3/uL (0-0.7); Absolute Lymphocytes 1.4 10^3/uL (1.2-3.4); Absolute Monocytes 0.5 10^3/uL (0.1-0.6); Absolute Neutrophils 5.7 10^3/uL (1.4-6.5); Hematocrit 44.7 % (39.0-52.0); Hemoglobin 15.2 g/dL (13.0-18.0); Mean Corpuscular Hgb 30.1 pg (27.0-31.0); Mean Corpuscular Volume 88.5 fL (80.0-94.0); Mean Platelet Volume 10.2 fL (7.4-10.4); Nucleated Red Blood Cells % 0 % (-); Platelet Count 208 10^3/uL (130-400); Red Blood Cell Count 5.05 10^6/uL (4.70-6.10); Red Cell Dist. Width 13.2 % (11.5-14.5); White Blood Cell Count 7.8 10^3/uL (4.8-10.8)
[2024-11-01 12:36] LABS: ALT (SGPT) 26 U/L (0-50); AST (SGOT) 27 U/L (17-59); Albumin 4.4 g/dl (3.5-5.0); Alkaline Phosphatase 89 U/L (38-126); Blood Urea Nitrogen 13 mg/dl (9-20); Calcium 9.7 mg/dl (8.4-10.2); Carbon Dioxide 23 mmol/L (22-30); Chloride 109 mmol/L (98-107); Glucose 117 mg/dl (70-99); Potassium 3.9 mmol/L (3.5-5.1); Sodium 143 mmol/L (135-145); Total Bilirubin 0.7 mg/dl (0.2-1.3); Total Protein 7.1 g/dl (6.3-8.2); eGFR > 60.00
[2024-11-01 12:41] LABS: Troponin I < 0.012 ng/ml
--- NOTE | 2024-11-01 13:26 | ED.GENMED ---
History of Present Illness
General
Chief Complaint: Cardiac Symptoms
Time Seen by Provider: 11/01/24 12:22
History of Present Illness
History of Present Illness:
54-year-old male presents to the emergency department for evaluation of intermittent chest pain for the past several days. He states that he was recently admitted to [facility] due to complications after a GI procedure, states while
admitted there he was experiencing similar symptoms and noted to have frequent PVCs. While inpatient he did have a CT angiogram of the chest showing no evidence of pulmonary embolism. He has had intermittent symptoms since that time but they were
worse this morning prompting him to come to the emergency department. He sees a visual inspector through [place] and most recently had a cardiac catheterization in December 2023 showing minimal nonocclusive coronary disease in the circumflex and LAD,
essentially unremarkable otherwise.
Past History
Past History
ED Past Medical History: HTN, Hypercholesterolemia and Other (Traumatic brain injury)
ED Past Surgical History: Appendectomy, Cholecystectomy and Orthopedic
Social History
Tobacco: Smoker
Alcohol: None
Drug: None
Personal:
Living: with family
Employment: Disabled
Family History
Family History: CAD
Review of Systems
Review of Systems
Allergies reviewed?: Yes
All Other Systems: ROS reviewed and negative except as documented in HPI and ROS
Phy Exam
Physical Exam
Physical Exam:
GEN: Well appearing, NAD, WDWN
HEENT: Oral mucosa moist, no scleral icterus
Cardiac: Regular rate, Regular rhythm
Lung: No respiratory distress, no tachypnea, lungs CTAB
MSK: No gross deformity or injuries
Skin: Good color, no pallor or jaundice, no rashes
Neuro: AO x3, moves all extremities freely
Psych: Calm, cooperative
Course
Orders/Labs/Results
Orders:
Orders
11/01/24 11:40
ECG [Electrocardiogram (*1)] Urgent
Reason for Study: Chest Pain
EKG- Treatment ONCE
11/01/24 12:05
Complete Blood Count/With Diff Urgent
Comprehensive Metabolic Panel Urgent
Troponin I Urgent
Abnormal Lab Results
11/01/24
12:05
Lymphocytes % 17.4 L %
(20.5-51.1)
Chloride 109 H mmol/L
(98-107)
Glucose 117 H mg/dl
(70-99)
11/01/24 12:05
11/01/24 12:05
Vital Signs
Initial and Last Documented VS:
Initial Vital Signs
Temp Pulse Resp BP Pulse Ox
98.1 F 95 16 176/102 98
11/01/24 11:42 11/01/24 11:42 11/01/24 11:42 11/01/24 11:42 11/01/24 11:42
Last Documented Vital Signs
Temp Pulse Resp BP Pulse Ox
98.1 F 56 16 160/83 98
11/01/24 11:42 11/01/24 13:40 11/01/24 11:42 11/01/24 13:40 11/01/24 11:42
MDM/Problems Addressed
MDM/Problems Addressed:
Patient's labs are reassuring. Particular reassuring that the patient had a clean cardiac catheterization within the past 12 months, I suspect the symptoms are due to frequent PVCs noted on telemetry. Will recommend outpatient cardiology follow-up
*Critical Care Note
Total Time (30-74mins, 75-104mins- exclusive of procedures): Not Applicable
ED Attending Note
-
Portions of this chart may have been created with voice recognition software.� Occasional wrong word or��sound alike� substitutions may have occurred due to the inherent limitations of voice recognition software.
Discharge Plan
Departure
Patient Disposition: Home (Routine Discharge)
Date of Disposition: 11/01/24
Time of Disposition: 13:26
Patient with high blood pressure during this ER visit?: No
Discharge Problem:
Symptomatic PVCs
Instructions: Ventricular premature beats
Prescriptions:
No Action
omeprazole 20 MG capsule,delayed release(DR/EC)
20 mg PO BID
fexofenadine-pseudoephedrine [Pamela-D 24 Hour] 1 EACH tablet extended release 24 hr
1 ea PO HS
losartan 50 mg Tablet
50 mg PO DAILY
famotidine 10 mg Tablet
10 mg PO HS
montelukast 10 mg Tablet
10 mg PO DAILY
ondansetron 4 mg tablet,disintegrating
4 mg PO Q8H 1 Days Qty: 3 0RF
sucralfate [Carafate] 1 gram tablet
1 g PO QID Qty: 60 0RF
Referrals:
NONE,* [Family Provider] -
Activity Restrictions/Additional Instructions:
Discussed possible beta-davian therapy with your primary visual inspector
Interventions
Interventions:
*Risk Screen - Suicide Last Done: 11/01/24 11:42
*General Assessment Last Done: 11/01/24 13:37
*Neglect/Abuse Screening Last Done: 11/01/24 11:42
*ED- Fall Risk Assessment Last Done: 11/01/24 13:37
*ED COVID-19 Vaccine History Last Done: 11/01/24 13:37
*Nursing Disposition Last Done: 11/01/24 13:40
ED- Pulmonary Assessment Last Done: 11/01/24 13:38
ED- Cardiac Assessment Last Done: 11/01/24 13:38
Discharge Date and Time
Discharge Date/Time: 11/01/24 13:41
Print Language: TUNISIAN
[2024-11-01 13:40] VITALS: BP 160/83
== END 2024-11-01 13:41 | disposition home or self-care (01) ==
LOC: EMR 11:38
PROVIDERS: Emergency Medicine; EMERGENCY PHYSICIAN Emergency Medicine
DX: I49.3 Ventricular premature depolarization (principal); I10 Essential (primary) hypertension; F17.200 Nicotine dependence, unspecified, uncomplicated; E78.00 Pure hypercholesterolemia, unspecified
CPT/HCPCS: 99284; 80053; 84484; 85025; 93005

== ENCOUNTER 2025-04-23 18:58 | Emergency (ER) | payer BC, SELFPAY ==
[2025-04-23 19:00] VITALS: BP 164/102
[2025-04-23 19:24] LABS: Hematocrit 43.2 % (39.0-52.0); Hemoglobin 14.9 g/dL (13.0-18.0); Mean Corp Hgb Conc. 34.5 g/dL (33.0-37.0); Mean Corpuscular Volume 90.2 fL (80.0-94.0); Nucleated Red Blood Cells % 0 % (-); Platelet Count 217 10^3/uL (130-400); Red Cell Dist. Width 13.2 % (11.5-14.5)
[2025-04-23 19:39] LABS: ALT (SGPT) 25 U/L (0-50); AST (SGOT) 28 U/L (17-59); Albumin 4.7 g/dl (3.5-5.0); Alkaline Phosphatase 77 U/L (38-126); Blood Urea Nitrogen 11 mg/dl (9-20); Calcium 9.6 mg/dl (8.4-10.2); Carbon Dioxide 26 mmol/L (22-30); Chloride 106 mmol/L (98-107); Glucose 86 mg/dl (70-99); Lipase 50 U/L (23-300); Potassium 4.2 mmol/L (3.5-5.1); Sodium 138 mmol/L (135-145); Total Protein 7.5 g/dl (6.3-8.2); eGFR > 60.00
[2025-04-23 19:50] LABS: Troponin I < 0.012 ng/ml
[2025-04-23 22:02] VITALS: BMI 33.2
[2025-04-23 22:04] VITALS: BP 130/77
[2025-04-23] MEDS: CARAFATE SUSPENSION 1 GM PO (23:08)
--- NOTE | 2025-04-23 23:25 | EDRN ---
IV team currently at the pts bedside
[2025-04-23 23:43] VITALS: BP 136/81
--- NOTE | 2025-04-24 01:09 | ED.GENMED ---
History of Present Illness
General
Chief Complaint: Throat Problem
Source: patient
Time Seen by Provider: 04/23/25 21:00
History of Present Illness
History of Present Illness:
Note:
CHIEF COMPLAINT(S)
Neck pain, dysphagia, and unusual taste sensation.
HISTORY OF PRESENT ILLNESS
The patient is a 55-year-old male presenting with complaints of neck and ear discomfort, alongside a foul taste sensation and difficulty swallowing, which he describes as food getting stuck while drinking remains normal. Symptoms began approximately
one week ago and have persisted, affecting his vision intermittently, causing him to adjust his glasses frequently. The patient reports palpating a noticeable lump on his neck, which was first identified by his spouse while massaging his neck. He
experiences peculiar spit qualities, alternating between foamy and thick, and describes it as payam to 'starting up an old car.' The patient denies fever but notes pressure in the epigastric region described as an uncomfortable sensation rather than
pain. He had a chest X-ray conducted about a week ago due to recent illness, showing no pneumonia. The patient also reports a history of a brain injury in 2007, which makes him anxious about potential head and neck issues. In 2021, a spinal issue
was found, characterized by a short-lived concern for cancer which was ruled out, but led to follow-up MRIs for monitoring growth.
PAST MEDICAL AND SURIGICAL HISTORY
History of brain injury from an accident in 2007.
SOCIAL HISTORY
The patient occasionally smokes cigarettes, mainly during periods of stress, and mentioned smoking two cigarettes today. He denies daily use.
REVIEW OF SYSTEMS
- Ear, Nose, and Tongue: Reports neck pain, ear discomfort, and a lump on the neck.
- Eyes: Experiences vision disturbance requiring frequent adjustment of glasses.
- Respiratory: No fevers reported.
- Gastrointestinal: Describes difficulty swallowing solids, with pressure in the epigastric region.
- Neurological: History of prior brain injury with heightened concern for head and neck symptoms.
PHYSICAL EXAM
General: Alert, no acute distress.
Skin: Warm, dry.
Head: Normocephalic, atraumatic.
Neck: Supple, trachea midline. Reports minor swelling overlying the left mastoid region, non-tender, no anterior or posterior cervical adenopathy.
Eye Ears, nose, mouth, and throat: Oral mucosa moist. Tongue normal, no stridor observed. Small amount of exudates noted to the left tonsil
Cardiovascular: Normal peripheral perfusion, No edema.
Respiratory: Respirations are non-labored, lungs clear.
Gastrointestinal: Abdomen nondistended. Nontender. No palpable masses
Back: Normal range of motion, Normal alignment.
Musculoskeletal: Normal ROM, normal strength.
Neurological: Alert and oriented to person, place, time, and situation, No focal neurological deficit observed.
Psychiatric: Cooperative, appropriate mood & affect.
PROBLEM LIST
Acute Problems:
- Neck pain with palpable lump
- Difficulty swallowing (dysphagia)
- Unusual taste sensation
Chronic Problems:
- History of brain injury
PLAN
- Order imaging studies for the neck and chest to investigate the lump and swallowing difficulties.
- Administer an antacid to address potential acid reflux symptoms.
- Review previous chest X-ray from a week ago for additional insight into respiratory concerns.
- Schedule for further evaluations as necessary depending on imaging results.
DIFFERENTIAL DIAGNOSIS
The Differential Diagnosis includes, in no particular order and is not limited to:
1. Gastroesophageal reflux disease (GERD)
2. Esophageal stricture
3. Cervical lymphadenopathy
4. Sinusitis with postnasal drip
5. Thyroid nodule or mass
6. Lymphoma
7. Infectious mononucleosis
8. Upper respiratory tract infection
9. Anxiety-related dysphagia
10. Esophageal carcinoma
CARE-UPDATE
04/24/25 - 01:05
1. A swab was taken for culture due to the presence of pus noted on examination.
2. The patient has been advised to restart Omeprazole for two weeks to manage symptoms suggestive of acid reflux.
3. Carafate has been prescribed for temporary relief of symptoms.
4. If symptoms persist, and culture results are negative, a referral to an ENT specialist will be provided.
5. The patient reported extensive itching, which did not improve with Benadryl. Hydrocortisone spray was administered before leaving to help alleviate itching.
Disposition:
SUMMARY OF ENCOUNTER
A 55-year-old male presented with complaints of neck pain, difficulty swallowing, and an unusual taste sensation, symptoms persisting for the last one to two weeks. The patient recently stopped omeprazole, raising concerns about possible esophagitis
or gastroesophageal reflux disease (GERD). A CT scan of the neck was conducted and showed no masses. Throat cultures were obtained, and antibiotics were withheld pending culture results. The patient was advised to restart omeprazole and begin
treatment with sucralfate for symptomatic relief. Close follow-up with the primary care provider and an ENT specialist was recommended if symptoms persisted.
PLAN
- Restart omeprazole therapy.
- Begin sucralfate for symptom management.
- Hold off on antibiotics until throat culture results are available.
- Recommend close follow-up with the patients primary care provider.
- Advise follow-up with an ENT specialist if symptoms persist.
INDEPENDENT REVIEW OF LABS AND INTERPRETATION OF TESTS
- My independent interpretation of the CT scan of the neck shows no masses.
MEDICATION RECONCILIATION
- Restart omeprazole as previously prescribed.
- Prescribed sucralfate to manage symptoms and promote mucosal healing.
MEDICAL DECISION MAKING
- Complexity of Data Reviewed: Chronic conditions affecting care include past medical history of a brain injury. Differential diagnosis includes gastroesophageal reflux disease (GERD), esophageal stricture, cervical lymphadenopathy, sinusitis with
postnasal drip, thyroid nodule or mass, lymphoma, infectious mononucleosis, upper respiratory tract infection, anxiety-related dysphagia, and esophageal carcinoma.
- Data:
Category 1
- My independent interpretation of the CT scan of the neck revealed no masses.
Category 2
- None.
Category 3
- None.
- Risk: Prescription medication management for GERD was implemented with omeprazole and sucralfate. Pending throat culture results to determine the need for antibiotics. Management includes considering escalation of care through ENT follow-up if
symptoms persist.
DIAGNOSIS
- Gastroesophageal Reflux Disease (GERD) - ICD-10 K21.9
- Dysphagia - ICD-10 R13.10
Past History
Past History
ED Past Medical History: HTN, Hypercholesterolemia and Other (Traumatic brain injury)
ED Past Surgical History: Appendectomy, Cholecystectomy and Orthopedic
Social History
Tobacco: Smoker
Alcohol: None
Drug: None
Personal:
Living: with family
Employment: Disabled
Family History
Family History: CAD
Phy Exam
Physical Exam
Physical Exam:
.
Course
Orders/Labs/Results
Orders:
Orders
04/23/25 19:03
ECG [Electrocardiogram (*1)] Urgent
Reason for Study: Other
Other Reason for Exam: jaw pain
EKG- Treatment ONCE
04/23/25 19:16
Complete Blood Count/With Diff Urgent
Comprehensive Metabolic Panel Urgent
Lipase Urgent
Troponin I Urgent
04/23/25 22:58
CT Neck With Iv Contrast Urgent
Comment:
Reason For Exam: neck pain, difficulty swallowing
Sucralfate Suspension [Carafate Suspension] 1 gm PO NOW STA
04/24/25 01:08
Dexamethasone Sod Phosphate [Decadron] 10 mg IV NOW STA
04/24/25 01:09
Throat Culture [Throat Culture, Comprehensive] Urgent
TREMAINE Source: Throat/Pharynx
Specimen Description:
Abnormal Lab Results
04/23/25
19:16
MCH 31.1 H pg
(27.0-31.0)
Absolute Monos (auto) 0.9 H 10^3/uL
(0.1-0.6)
Monocytes % 9.7 H %
(1.7-9.3)
04/23/25 19:16
04/23/25 19:16
Vital Signs
Initial and Last Documented VS:
Initial Vital Signs
Temp Pulse Resp BP Pulse Ox
98.0 F 71 20 164/102 98
04/23/25 19:00 04/23/25 19:00 04/23/25 19:00 04/23/25 19:00 04/23/25 19:00
Last Documented Vital Signs
Temp Pulse Resp BP Pulse Ox
98.5 F 86 20 136/81 99
04/23/25 23:43 04/23/25 23:43 04/23/25 23:43 04/23/25 23:43 04/23/25 23:43
*Pulse Oximetry
SaO2: 99
Oxygen Mode of Delivery: Room air
Patient hypoxic: no
*Critical Care Note
Total Time (30-74mins, 75-104mins- exclusive of procedures): Not Applicable
ED Attending Note
-
Portions of this chart may have been created with voice recognition software.� Occasional wrong word or��sound alike� substitutions may have occurred due to the inherent limitations of voice recognition software.
Discharge Plan
Departure
Patient Disposition: Home (Routine Discharge)
Date of Disposition: 04/24/25
Time of Disposition: 01:10
Patient with high blood pressure during this ER visit?: No
Discharge Problem:
Acute sore throat, possible esophagitis
Instructions: Sore Throat, Adult (DC)
Prescriptions:
No Action
omeprazole 20 MG capsule,delayed release(DR/EC)
20 mg PO BID
fexofenadine-pseudoephedrine [Pamela-D 24 Hour] 1 EACH tablet extended release 24 hr
1 ea PO HS
losartan 50 mg Tablet
50 mg PO DAILY
famotidine 10 mg Tablet
10 mg PO HS
montelukast 10 mg Tablet
10 mg PO DAILY
ondansetron 4 mg tablet,disintegrating
4 mg PO Q8H 1 Days Qty: 3 0RF
sucralfate [Carafate] 1 gram tablet
1 g PO QID Qty: 60 0RF
Referrals:
SAVANA PUGA [Other]
Jb Hayes MD [Active, ENT]
Activity Restrictions/Additional Instructions:
Return immediately for difficulty breathing, fevers, worsening symptoms, difficulty swallowing or any other concerns. Please see your doctor in the next 2 to 3 days for follow-up and reevaluation. If symptoms persist, please follow-up with ENT in
the next 1 week.
Please restart your omeprazole 30 minutes before breakfast every morning. Please take Carafate 1 hour every meal and 1 hour before bedtime week.
Interventions
Interventions:
*General Assessment Last Done: 04/23/25 19:02
*Neglect/Abuse Screening Last Done: 04/23/25 19:00
*ED- Fall Risk Assessment Last Done: 04/23/25 20:56
*ED COVID-19 Vaccine History Last Done: 04/23/25 20:56
ED-EENT Assessment Last Done: 04/23/25 23:43
ED- Pulmonary Assessment Last Done: 04/23/25 23:43
Discharge Date and Time
Print Language: TAJIK
[2025-04-24] MEDS: DECADRON 10 MG IV (01:22)
== END 2025-04-24 01:47 | disposition home or self-care (01) ==
LOC: EMR 18:58
PROVIDERS: Student in an Organized Health Care Education/Training Program; EMERGENCY PHYSICIAN Emergency Medicine
DX: J02.9 Acute pharyngitis, unspecified (principal); I10 Essential (primary) hypertension; E78.00 Pure hypercholesterolemia, unspecified; F17.210 Nicotine dependence, cigarettes, uncomplicated; Z87.820 Personal history of traumatic brain injury; Z82.49 Family history of ischemic heart disease and other diseases of the circulatory system
CPT/HCPCS: 99284; 96374; 70491; 80053; 83690; 84484; 85025; 87070; 93005; Q9967